=== PATIENT | male | born 1930 | race African-American/Black ===

== ENCOUNTER 2018-04-20 19:19 | Inpatient (IN) | payer BC, OTHER ==
[~2018-04-20] VITALS: Ht 182.9 cm; Wt 70.3 kg
[2018-04-21 01:19] LABS: Basophils # (auto) 0 uL; Basophils % (auto) 0.3 % (0.0-2.0); Eosinophils # (auto) 0 uL; Eosinophils % (auto) 0.7 % (0.0-7.0); Hematocrit 47.6 % (41.0-53.0); Hemoglobin 15.6 g/dL (13.5-17.5); Lymphocytes # (auto) 0.8 uL; Mean Corpuscular Hemoglobin 27.8 pg (28.0-32.0); Mean Corpuscular Hgb Conc. 32.7 g/dL (32.0-36.0); Mean Corpuscular Volume 85.2 fL (80.0-100.0); Monocytes # (auto) 0.3 uL; Monocytes % (auto) 6.7 % (0.0-12.0); Neutrophils # (auto) 3.7 uL; Neutrophils % (auto) 75.3 % (37.0-80.0); Nucleated Red Blood Cells % 0.1 %; Platelet Count (auto) 166 10^3/uL (140-450); Red Blood Cells 5.59 10^6/uL (4.5-5.90); White Blood Cell 4.9 10^3/uL (4.4-10.8)
[2018-04-21 01:36] LABS: Albumin 3.4 g/dL (3.4-5.0); Anion Gap 9 (5-15); BUN/Creatinine Ratio 15.1; Blood Urea Nitrogen 16 mg/dL (7-18); Calcium 8.5 mg/dL (8.5-10.1); Carbon Dioxide 23 mmol/L (21-32); Chloride 110 mmol/L (98-107); GFR African American 85 mL/min; GFR Non-African American 70 mL/min; Glucose 165 mg/dL (74-106); Magnesium 2.3 mg/dL (1.6-2.6); Potassium 4.2 mmol/L (3.5-5.1); Sodium 142 mmol/L (136-145)
[2018-04-21 01:39] LABS: INR 1.07 (0.9-1.15); Partial Thromboplastin Time 29.7 sec (23.78-33.04); Prothrombin Time 11.4 sec (9.27-12.13)
[2018-04-21 01:41] LABS: Alanine Aminotransferase 21 U/L (16-61); Alkaline Phosphatase 118 U/L (45-117); Aspartate Aminotransferase 17 U/L (15-37); Bilirubin, Total 0.3 mg/dL (0.2-1.0); Total Protein 7.5 g/dL (6.4-8.2)
[2018-04-21] MEDS ORDERED: ACETAMINOPHEN 500 MG TAB PO PRN (04:30)
[2018-04-21] MEDS ORDERED: HYDROcodone-ACET 5/325MG TAB PO PRN (04:30)
[2018-04-21] MEDS ORDERED: ONDANSETRON HCL 4 MG/2 ML VIAL IV PRN (04:30)
[2018-04-21] MEDS ORDERED: SODIUM CHLORIDE 0.9% 500 ML IV ONE (05:00)
[2018-04-21 07:24] LABS: Basophils # (auto) 0 uL; Basophils % (auto) 0.2 % (0.0-2.0); Eosinophils # (auto) 0.1 uL; Eosinophils % (auto) 1.6 % (0.0-7.0); Hemoglobin 15.2 g/dL (13.5-17.5); Lymphocytes # (auto) 1.1 uL; Mean Corpuscular Hemoglobin 28.3 pg (28.0-32.0); Mean Corpuscular Hgb Conc. 33.1 g/dL (32.0-36.0); Mean Corpuscular Volume 85.3 fL (80.0-100.0); Monocytes # (auto) 0.6 uL; Monocytes % (auto) 11.1 % (0.0-12.0); Neutrophils # (auto) 3.2 uL; Neutrophils % (auto) 65.1 % (37.0-80.0); Nucleated Red Blood Cells % 0.1 %; Platelet Count (auto) 178 10^3/uL (140-450); Red Blood Cells 5.39 10^6/uL (4.5-5.90); Red Cell Distribution Width 14.1 % (11.8-14.3)
[2018-04-21 07:43] LABS: BUN/Creatinine Ratio 12.5; Calcium 8.9 mg/dL (8.5-10.1); Potassium 3.7 mmol/L (3.5-5.1)
[2018-04-21] MEDS: glipiZIDE 5 MG TAB PO SCH ×2 (08:34→18:23)
[2018-04-21] MEDS: METOPROLOL SUCCINATE XL 50 MG TAB PO SCH (10:40)
[2018-04-21] MEDS ORDERED: BIMA0.01 RIGHTEYE (12:39)
[2018-04-21] MEDS ORDERED: GLIP-116 PO (12:39)
[2018-04-21] MEDS ORDERED: METO-169 PO (12:39)
[2018-04-21] MEDS ORDERED: LISI10TA6 PO (12:39)
[2018-04-21] MEDS ORDERED: ASPI-231 PO (12:39)
[2018-04-21] MEDS ORDERED: DORZ2SOL18 EACHEYE (12:39)
[2018-04-21 16:49] VITALS: BP 157/78
[2018-04-21] MEDS ORDERED: TIMO0.5S38 EACHEYE (21:04)
[2018-04-21] MEDS ORDERED: BIMA0.01 EACHEYE (21:07)
[2018-04-21 22:00] VITALS: BP 161/83
[2018-04-22 05:00] VITALS: BP 150/73
[2018-04-22] MEDS: glipiZIDE 5 MG TAB PO SCH ×2 (06:57→18:06)
[2018-04-22 09:02] VITALS: BP 153/85
[2018-04-22] MEDS: METOPROLOL SUCCINATE XL 50 MG TAB PO SCH (10:00)
[2018-04-22 13:00] VITALS: BP 156/72
[2018-04-22 17:28] VITALS: BP 131/73
[2018-04-22 22:10] VITALS: BP_SYST 129; BP_SYST 140; BP_DIAS 79; BP_DIAS 81
[2018-04-23 05:04] VITALS: BP_SYST 107; BP_SYST 132; BP_DIAS 58; BP_DIAS 76
[2018-04-23 05:18] VITALS: BP_SYST 117; BP_SYST 132; BP_DIAS 67; BP_DIAS 76
[2018-04-23] MEDS: glipiZIDE 5 MG TAB PO SCH (06:37)
[2018-04-23 09:23] VITALS: BP 148/76
[2018-04-23] MEDS: METOPROLOL SUCCINATE XL 50 MG TAB PO SCH (10:28)
[2018-04-23 12:46] VITALS: BP 152/84
[2018-04-23 16:45] VITALS: BP 157/85
[2018-04-23 18:51] VITALS: BP 157/85
== END 2018-04-23 19:30 | disposition home or self-care (01) | DRG 312 ==
LOC: EDBD 19:19 → EDUNIT# 19:19 → ER 19:22 → OVERFLOW 19:23 → WEST WING 04-21 14:49
PROVIDERS: ADMIT Nurse Practitioner Family; ATTEND Family Medicine
DX: R55 Syncope and collapse (principal); E11.9 Type 2 diabetes mellitus without complications; I10 Essential (primary) hypertension; E86.0 Dehydration; H54.61 Unqualified visual loss, right eye, normal vision left eye; R00.1 Bradycardia, unspecified; Z83.3 Family history of diabetes mellitus; Z95.0 Presence of cardiac pacemaker
CPT/HCPCS: 36415; 70450; 71045; 80048; 80053; 80061; 80320; 82962; 83036; 83735; 83880; 84443; 84484; 85025; 85379; 85610; 85730; 93005; 93306; 93886; 94761; 95819; 96360